=== PATIENT | male | born 1980 | race Caucasian/White ===

== ENCOUNTER 2017-08-12 11:12 | Emergency (ER) | payer OTHER ==
[~2017-08-12 11:12] MED LIST: LEXAPRO5 MG PO; XANAX XR0.5 MG PO
== END 2017-08-12 11:52 | disposition left against medical advice (07) ==
LOC: ED 11:12
DX: Z53.21 Procedure and treatment not carried out due to patient leaving prior to being seen by health care provider (principal)

== ENCOUNTER 2017-08-12 12:29 | Emergency (ER) | payer OTHER ==
[~2017-08-12] VITALS: Ht 182.9 cm; Wt 114.5 kg
[2017-08-12 13:20] VITALS: BP 153/118
== END 2017-08-12 14:01 | disposition left against medical advice (07) ==
LOC: ED 12:29
DX: Z53.21 Procedure and treatment not carried out due to patient leaving prior to being seen by health care provider (principal)

== ENCOUNTER 2017-08-12 19:11 | Emergency (ER) | payer OTHER ==
[2017-08-12 22:00] VITALS: BP 134/84
== END 2017-08-12 22:00 | disposition home or self-care (01) ==
LOC: ED 19:11
DX: S61.012A Laceration without foreign body of left thumb without damage to nail, initial encounter (principal); E11.9 Type 2 diabetes mellitus without complications; W25.XXXA Contact with sharp glass, initial encounter; Y93.89 Activity, other specified; Y92.89 Other specified places as the place of occurrence of the external cause; Y99.8 Other external cause status

== ENCOUNTER 2018-03-16 10:42 | Emergency (ER) | payer OTHER ==
[~2018-03-16] VITALS: Ht 182.9 cm; Wt 112.5 kg
[2018-03-16 10:46] VITALS: Ht 182.9 cm; Wt 112.5 kg
[2018-03-16 11:32] LABS: BASOPHIL % 0.6 % (0-2); PLATELET COUNT 303 x10^3mcL (130-400); RED CELL DISTRIBUTION WIDTH 13.4 % (11.5-14.5)
[2018-03-16 11:47] LABS: CARBON DIOXIDE 25.5 mmol/L (21-32); CHLORIDE SERUM 97 mmol/L (98-107); CREATININE SERUM 1.4 mg/dL (0.7-1.3); GFR1 60 mL/min; GLUCOSE SERUM 355 mg/dL (74-106); POTASSIUM SERUM 4.4 mmol/L (3.5-5.1); SODIUM SERUM 134 mmol/L (136-145)
[2018-03-16 11:56] LABS: ALBUMIN 3.8 g/dL (3.4-5.0); ALKALINE PHOSPHATASE 77 U/L (46-116); ALT/SGPT 102 U/L (16-63); AMYLASE 76 U/L (25-115); AST/SGOT 47 U/L (15-37); BILIRUBIN TOTAL 0.7 mg/dL (0.20-1.00); LIPASE 332 IU/L (73-393); TOTAL PROTEIN, SERUM 7.7 g/dL (6.4-8.2)
[2018-03-16 12:04] LABS: AMPHETAMINE QUAL UR NONE DETECTED (NEG <=1000)
[2018-03-16 13:06] VITALS: BP 107/64
[2018-03-16] MEDS ORDERED: GLIPIZIDE ER10 M1 PO (13:48)
[2018-03-16] MEDS ORDERED: METFORMIN HYD1000 M2 PO (13:48)
== END 2018-03-16 14:39 | disposition left against medical advice (07) ==
LOC: ED 10:42 → DU 13:40 → ED 13:40
PROVIDERS: Emergency Medicine
DX: R07.89 Other chest pain (principal); I24.9 Acute ischemic heart disease, unspecified; E11.65 Type 2 diabetes mellitus with hyperglycemia
CPT/HCPCS: 36600; 85378; G0480; J1815; J7030

== ENCOUNTER 2018-10-30 11:16 | Emergency (ER) | payer OTHER ==
[~2018-10-30] VITALS: Ht 182.9 cm; Wt 105.7 kg
[~2018-10-30 11:16] MED LIST changes: +GLIPIZIDE ER10 M1 PO; +METFORMIN HYD1000 M2 PO
[2018-10-30 11:23] VITALS: Ht 182.9 cm; Wt 105.7 kg
[2018-10-30 12:45] LABS: UA SPECIFIC GRAVITY <=1.005 (1.005-1.035); microscopic required? YES; urine erythrocyte NEGATIVE (NEGATIVE)
[2018-10-30 12:52] LABS: BASOPHIL % 0.3 % (0-2); PLATELET COUNT 313 x10^3mcL (130-400); RED CELL DISTRIBUTION WIDTH 12.7 % (11.5-14.5)
[2018-10-30 12:54] LABS: AMPHETAMINE QUAL UR NONE DETECTED (See below)
[2018-10-30 13:22] LABS: T3 TOTAL 0.88 ng/mL
[2018-10-30 13:27] LABS: CALCIUM 9.5 mg/dL (8.5-10.1); CARBON DIOXIDE 28.4 mmol/L (21-32); CREATININE SERUM 1.4 mg/dL (0.7-1.3); POTASSIUM SERUM 4.3 mmol/L (3.5-5.1)
[2018-10-30 13:28] LABS: BILIRUBIN TOTAL 0.6 mg/dL (0.20-1.00); C REACTIVE PROTEIN 2.9 mg/dL (<=0.9); FREE T4 0.99 ng/dL (0.76-1.46); T4(THYROXINE) 8.7 ug/dL (4.7-13.3)
[2018-10-30 13:29] LABS: CK-MB 1.4 ng/mL (0-3.6)
[2018-10-30 13:30] LABS: ALBUMIN 3.3 g/dL (3.4-5.0); TOTAL PROTEIN, SERUM 8.3 g/dL (6.4-8.2)
[2018-10-30 13:55] LABS: ERYTHROCYTE SED RATE 50 mm/hr (0-15)
[2018-10-30 15:13] VITALS: BP 110/86
== END 2018-10-30 15:13 | disposition home or self-care (01) ==
LOC: ED 11:16
PROVIDERS: Specialist
DX: E11.65 Type 2 diabetes mellitus with hyperglycemia (principal); J06.9 Acute upper respiratory infection, unspecified; R11.10 Vomiting, unspecified; R19.7 Diarrhea, unspecified; Z90.49 Acquired absence of other specified parts of digestive tract
CPT/HCPCS: 36600; 82962; 84439; 87804; J1815; J7030

== ENCOUNTER 2019-04-11 11:59 | Emergency (ER) | payer OTHER ==
[~2019-04-11] VITALS: Ht 182.9 cm; Wt 109.8 kg
[2019-04-11 12:38] VITALS: BP 159/90
== END 2019-04-11 13:54 | disposition home or self-care (01) ==
LOC: ED 11:59
DX: S93.402A Sprain of unspecified ligament of left ankle, initial encounter (principal); E11.9 Type 2 diabetes mellitus without complications; Z90.49 Acquired absence of other specified parts of digestive tract; X50.1XXA Overexertion from prolonged static or awkward postures, initial encounter; Y93.01 Activity, walking, marching and hiking; Y92.89 Other specified places as the place of occurrence of the external cause; Y99.8 Other external cause status

== ENCOUNTER 2019-05-21 18:39 | Emergency (ER) | payer OTHER ==
[~2019-05-21] VITALS: Ht 182.9 cm; Wt 109.8 kg
[2019-05-21 19:31] VITALS: Ht 182.9 cm; Wt 109.8 kg
[2019-05-22 01:09] VITALS: BP 135/87
== END 2019-05-22 01:09 | disposition home or self-care (01) ==
LOC: ED 18:39
DX: M79.672 Pain in left foot (principal); B35.3 Tinea pedis; E11.9 Type 2 diabetes mellitus without complications; Z90.49 Acquired absence of other specified parts of digestive tract
CPT/HCPCS: J1885

== ENCOUNTER 2019-09-09 17:37 | Emergency (ER) | payer OTHER ==
[~2019-09-09] VITALS: Ht 182.9 cm; Wt 109.8 kg
[2019-09-09 17:52] VITALS: Ht 182.9 cm; Wt 109.8 kg
[2019-09-09 18:42] LABS: BASOPHIL % 0.3 % (0-2); PLATELET COUNT 342 x10^3mcL (130-400)
[2019-09-09 18:44] LABS: LIPASE 271 IU/L (73-393)
[2019-09-09 18:48] LABS: microscopic required? YES; urine erythrocyte TRACE (NEGATIVE)
[2019-09-09 18:52] LABS: CALCIUM 9.4 mg/dL (8.5-10.1); CARBON DIOXIDE 28.9 mmol/L (21-32); CREATININE SERUM 1.4 mg/dL (0.7-1.3)
[2019-09-09 18:53] LABS: ALBUMIN 3.8 g/dL (3.4-5.0); BILIRUBIN TOTAL 0.64 mg/dL (0.20-1.00); TOTAL PROTEIN, SERUM 8.1 g/dL (6.4-8.2)
[2019-09-09 18:56] LABS: AMPHETAMINE QUAL UR NONE DETECTED (See below)
[2019-09-09 19:05] LABS: POTASSIUM SERUM 4.5 mmol/L (3.5-5.1)
[2019-09-09 22:36] VITALS: BP 127/71
== END 2019-09-09 22:20 | disposition home or self-care (01) ==
LOC: ED 17:37
PROVIDERS: Specialist
DX: E11.65 Type 2 diabetes mellitus with hyperglycemia (principal); R07.89 Other chest pain; F41.9 Anxiety disorder, unspecified; M54.5 Low back pain
CPT/HCPCS: 36600; 82962; G0480; J1815; J1885; J7030; Q0092

== ENCOUNTER 2020-05-11 22:39 | Emergency (ER) | payer OTHER ==
[~2020-05-11] VITALS: Ht 185.4 cm; Wt 110.3 kg
[2020-05-11 22:46] VITALS: Ht 185.4 cm; Wt 110.3 kg
[2020-05-12 00:56] LABS: BASOPHIL % 0.6 % (0-2); PLATELET COUNT 311 x10^3mcL (130-400); RED CELL DISTRIBUTION WIDTH 12.6 % (11.5-14.5)
[2020-05-12 01:10] LABS: ALBUMIN 3.8 g/dL (3.4-5.0); ALKALINE PHOSPHATASE 54 U/L (46-116); ALT/SGPT 49 U/L (16-63); AST/SGOT 14 U/L (15-37); BILIRUBIN TOTAL 0.31 mg/dL (0.20-1.00); CALCIUM 9.6 mg/dL (8.5-10.1); CARBON DIOXIDE 25.6 mmol/L (21-32); CHLORIDE SERUM 100 mmol/L (98-107); CREATININE SERUM 1.3 mg/dL (0.7-1.3); GFR1 > 60 mL/min; GLUCOSE SERUM 289 mg/dL (74-106); LIPASE 796 IU/L (73-393); POTASSIUM SERUM 4.1 mmol/L (3.5-5.1); SODIUM SERUM 136 mmol/L (136-145); TOTAL PROTEIN, SERUM 7.5 g/dL (6.4-8.2)
[2020-05-12 02:13] VITALS: BP 125/77
== END 2020-05-12 02:13 | disposition home or self-care (01) ==
LOC: ED 22:39
PROVIDERS: Emergency Medicine
DX: R07.89 Other chest pain (principal); R06.02 Shortness of breath; E11.9 Type 2 diabetes mellitus without complications; Z90.49 Acquired absence of other specified parts of digestive tract
CPT/HCPCS: 82962; Q0092

== ENCOUNTER 2020-09-21 02:48 | Emergency (ER) | payer OTHER ==
[~2020-09-21] VITALS: Ht 182.9 cm; Wt 111.2 kg
[2020-09-21 03:00] VITALS: Ht 182.9 cm; Wt 111.2 kg
[2020-09-21 03:56] LABS: BASOPHIL % 0.7 % (0-2); PLATELET COUNT 286 x10^3mcL (130-400); RED CELL DISTRIBUTION WIDTH 13.2 % (11.5-14.5)
[2020-09-21 04:05] LABS: CALCIUM 9.1 mg/dL (8.5-10.1); CARBON DIOXIDE 27.8 mmol/L (21-32); CHLORIDE SERUM 95 mmol/L (98-107); CREATININE SERUM 1.5 mg/dL (0.7-1.3); GFR1 55 mL/min; GLUCOSE SERUM 437 mg/dL (74-106); POTASSIUM SERUM 4.1 mmol/L (3.5-5.1); SODIUM SERUM 131 mmol/L (136-145)
[2020-09-21 04:18] LABS: T3 TOTAL 1.42 ng/mL
[2020-09-21 04:18] LABS: AMPHETAMINE QUAL UR NONE DETECTED (See below)
[2020-09-21 04:20] LABS: ALBUMIN 3.6 g/dL (3.4-5.0); ALKALINE PHOSPHATASE 72 U/L (46-116); ALT/SGPT 49 U/L (16-63); AST/SGOT 21 U/L (15-37); BILIRUBIN TOTAL 0.39 mg/dL (0.20-1.00); HDL CHOLESTEROL 39 mg/dL (40-60); LIPASE 246 IU/L (73-393); TOTAL PROTEIN, SERUM 7.5 g/dL (6.4-8.2)
[2020-09-21 04:21] LABS: CHOLESTEROL 214 mg/dL (<200); CHOLESTEROL/HDL RATIO 5.5; TRIGLYCERIDES 1054 mg/dL (<150)
[2020-09-21 04:34] LABS: FREE T4 1.19 ng/dL (0.76-1.46); FREE THYROXINE INDEX 3.3 ug/dL (1.4-4.5); T4(THYROXINE) 8.3 ug/dL (4.7-13.3)
[2020-09-21 06:01] VITALS: BP 140/80
== END 2020-09-21 06:01 | disposition home or self-care (01) ==
LOC: ED 02:48
PROVIDERS: Specialist
DX: E11.65 Type 2 diabetes mellitus with hyperglycemia (principal); E78.1 Pure hyperglyceridemia; E66.9 Obesity, unspecified; Z90.49 Acquired absence of other specified parts of digestive tract
CPT/HCPCS: 36600; 82962; 83880; 84439; J7030